=== PATIENT | male | born 1955 | race African-American/Black ===

== ENCOUNTER 2020-07-20 13:58 | Emergency (ER) | payer OTHER ==
[~2020-07-20] VITALS: Ht 157.5 cm; Wt 61.2 kg
[2020-07-20] MEDS ORDERED: ZESTRIL40 M1 (14:16)
[2020-07-20] MEDS ORDERED: ATORVASTATIN CA20 MG (14:16)
[2020-07-20] MEDS ORDERED: TAMS0.4C PO (16:50)
== END 2020-07-20 18:42 | disposition home or self-care (01) ==
LOC: ER 13:58
DX: N48.89 Other specified disorders of penis (principal)